=== PATIENT | male | born 1930 | race Caucasian/White ===

== ENCOUNTER 2018-07-27 14:30 | Emergency (ER) | payer MEDICARE ==
[2018-07-27] MEDS ORDERED: oxyCODONE/Acetamin 5/325 MG* TAB PO ONE ×2 (16:39→21:23)
--- NOTE | 2018-07-27 17:38 | ED ---
Upper Extremity Pain - HPI Summary HPI Summary: Receiving sign out from Denise YAÑEZ. 88 yo male presents to [facility] accompanied by his daughter with pain and bruising to right shoulder. Pt tells me that he is on coumadin and plavix for stents and afib. From time to time he will wake up with bruising from sleeping awkwardly or on his extremities. Yesterday he woke with some bruising to his right chest/axilla that was not painful and mild swelling to his right shoulder. This morning the bruising has spread and he has significant pain extending into the right shoulder accompanied by further edema; this prompted their visit to the ED today. He denies specific injury to the shoulder, but is unable to move it much due to pain. He denies numbness or tingling. - History of Current Complaint Chief Complaint: EDExtremityUpper Stated Complaint: "RT ARM PAIN PER DAUGHTER" Time Seen by Provider: 07/27/18 15:44 Hx Obtained From: Patient, Family/Digital Strategy Director Timing: Constant Severity Initially: Mild Severity Currently: Severe Pain Location: Shoulder - Allergies/Home Medications Allergies/Adverse Reactions: Allergies Allergy/AdvReac Type Severity Reaction Status Date / Time ezetimibe [From Zetia] Allergy Unknown Verified 07/27/18 14:42 Reaction Details meperidine [From Demerol] Allergy Unknown Verified 07/27/18 14:42 Reaction Details Home Medications: Home Medications Acetaminophen TAB* [Tylenol TAB*] 1,000 mg PO Q4H PRN 07/27/18 [History Confirmed 07/27/18] Clopidogrel TAB* [Plavix TAB*] 75 mg PO DAILY 07/27/18 [History Confirmed ] Digoxin TAB* [Lanoxin TAB*] 0.125 mg PO DAILY 07/27/18 [History Confirmed ] Furosemide TAB* [Lasix TAB*] 40 mg PO DAILY 07/27/18 [History Confirmed 07/27/18 ] Isosorbide Dinitrate TAB* [Isordil TAB*] 30 mg PO DAILY 07/27/18 [History Confirmed 07/27/18] Lisinopril TAB* [Prinivil TAB*] 5 mg PO DAILY 07/27/18 [History Confirmed ] Metoprolol Tartrate TAB* [Lopressor TAB*] 12.5 mg PO DAILY 07/27/18 [History Confirmed 07/27/18] Oxybutynin TAB* [Ditropan TAB*] 5 mg PO DAILY 07/27/18 [History Confirmed ] Rosuvastatin (NF) [Crestor (NF)] 5 mg PO DAILY WITH MEAL 07/27/18 [History Confirmed 07/27/18] Warfarin TAB(*) [Coumadin TAB(*)] 5 mg PO DAILY 07/27/18 [History Confirmed 03/16] amLODIPine TAB* [Norvasc 5 mg TAB*] 5 mg PO DAILY 07/27/18 [History Confirmed ] PMH/Surg Hx/FS Hx/Imm Hx Cardiovascular History: Reports: Hx Atrial Fibrillation, Hx Congestive Heart Failure, Hx Hypercholesterolemia, Hx Hypertension, Hx Myocardial Infarction Respiratory History: Reports: Hx Chronic Obstructive Pulmonary Disease (COPD) GI History: Denies: Hx Gastrointestinal Bleed History: Denies: Hx Acute Renal Failure, Hx Chronic Renal Failure, Hx Dialysis, Hx Kidney Stones Neurological History: Denies: Hx CVA Psychiatric History: Denies: Hx Anxiety, Hx Depression Infectious Disease History: No Infectious Disease History: Denies: Traveled Outside the [place] in Last 30 Days - Family History Known Family History: Positive: Cardiac Disease, Hypertension, Respiratory Disease - Social History Occupation: Retired Alcohol Use: None Substance Use Type: Reports: None Smoking Status (MU): Former Smoker Review of Systems Constitutional: Negative Eyes: Negative ENT: Negative Cardiovascular: Negative Respiratory: Negative Gastrointestinal: Negative Genitourinary: Negative Musculoskeletal: Other - Right shoulder pain and bruising Positive: Bruising - Right shoulder/chest Neurological: Negative Psychological: Normal All Other Systems Reviewed And Are Negative: Yes Physical Exam - Summary Physical Exam Summary: GENERAL: NAD. WDWN. No pain distress. SKIN: Right upper arm with ecchymosis on anterior aspect. Right lateral breast with ecchymosis. Right shoulder no ecchymosis or open wound - moderate edema here. CHEST: No accessory muscle use. Breathing comfortably and in no distress. CV: Pulses intact radial and ulnar. Cap refill <2seconds MSK: RIGHT SHOULDER: Moderate edema and mild TTP about shoulder. Decreased flexion due to pain. Strength 5/5 including computer operations technician strength. NEURO: Alert. Sensations intact hand and all fingers. PSYCH: Age appropriate behavior. Triage Information Reviewed: Yes Vital Signs On Initial Exam: Initial Vitals Temp Pulse Resp BP Pulse Ox 98.7 F 76 18 125/66 90 07/27/18 14:37 07/27/18 14:37 07/27/18 14:37 07/27/18 14:37 07/27/18 14:37 Vital Signs Reviewed: Yes Diagnostics - Vital Signs Vital Signs Temp Pulse Resp BP Pulse Ox 07/27/18 16:54 15 07/27/18 16:05 99.1 F 67 19 138/59 97 07/27/18 15:38 98.9 F 73 18 129/61 99 07/27/18 14:37 98.7 F 76 18 125/66 90 - Laboratory Result Diagrams: 07/27/18 18:00 07/27/18 18:00 Lab Statement: Any lab studies that have been ordered have been reviewed, and results considered in the medical decision making process. Re-Evaluation - Re-Evaluation First Eval Re-Evaluation Time: 21:23 Comment: Pt thinks pain medication is wearing off. Pain 7/10 at this time. Will give him another percocet now. Second Eval Re-Evaluation Time: 23:13 Comment: FINDINGS: Bones/joints: Lobulated right shoulder joint effusion extending anteriorly. Enlargement of the bursa overlying the humeral head laterally. Moderate right. shoulder joint space loss with periarticular osteophytes. Moderate hypertrophy. of the AC joint. Soft tissues: Normal. Vasculature: The vasculature demonstrates diffuse mild atherosclerotic. calcification. Lungs: Moderate centrilobular emphysematous disease. Compressive atelectasis. Pleural space: Moderate right pleural effusion. Thyroid: Low attenuating right thyroid lobe nodule measuring up to 2.2 cm with. nodular enhancing mural nodules. IMPRESSION: 1. Subacromial/subdeltoid bursitis. 2. Lobulated joint effusion with etiologies including rheumatoid arthritis,. gout, and ankylosing spondylitis. 3. Moderate emphysema and moderate right effusion. 4. Right thyroid lobe nodule. Followup with ultrasound recommended. Discussed results with pt and family. Course/Dx - Course Course Of Treatment: CT findings as above. No hemarthrosis noted. Pt pain is well controlled with po oxycodone in the ED without any mental disturbances, bradycardic or hypotensive episodes. He will be discharged to home and instructed to apply ice to his shoulder and f/u with his PCP on Sunday in [place] for a recheck. Will rx for Oxycodone to take for breakthrough pain if tylenol is not helping. Pt and family voiced understanding and are agreeable with the plan. - Diagnoses Provider Diagnoses: Bursitis of right shoulder Discharge - Sign-Out/Discharge Documenting (check all that apply): Patient Departure Patient Received Moderate/Deep Sedation with Procedure: No - Discharge Plan Condition: Stable Disposition: HOME Prescriptions: Oxycodone HCl/Acetaminophen [Percocet 5-325 mg Tablet] 1 each PO Q8H PRN #9 tablet MDD 3 PRN Reason: Pain Patient Education Materials: Shoulder Bursitis (ED), Swollen Shoulder Joint (ED ) Referrals: No Primary Care Phys,NOPCP [Primary Care Provider] - Additional Instructions: If you develop a fever, shortness of breath, chest pain, new or worsening symptoms - please call your PCP or go to the ED immediately. Please rest and apply ice to your shoulder to decrease pain and swelling. Please follow up with your primary doctor on Sunday for a recheck. I strongly recommend that you see an Orthopedic doctor for further evaluation when you return home. If you notice a fever or bruising into the shoulder or worsening symptoms - please be rechecked immediately - Billing Disposition and Condition Condition: STABLE Disposition: Home
[2018-07-27 18:06] LABS: ABS Basophils 0.1 10^3/ul (0-0.2); ABS Eosinophils 0.1 10^3/ul (0-0.6); ABS Lymphocytes 0.9 10^3/ul (1.0-4.8); ABS Monocytes 0.4 10^3/ul (0-0.8); ABS Neutrophils 3.5 10^3/ul (1.5-7.7); Eosinophil % 2.2 %; Hematocrit 33 % (42-52); Hemoglobin 10.9 g/dL (14.0-18.0); Lymphocyte % 18.5 %; Mean Corpuscular HGB Conc 33 g/dL (31-36); Mean Corpuscular Hemoglobin 29 pg (27-31); Mean Corpuscular Volume 89 fL (80-94); Mean Platelet Volume 7.4 fL (7.4-10.4); Nucleated Red Blood Cells % 0.1; Platelet Count 205 10^3/uL (150-450); Red Blood Count 3.74 10^6 /uL (4.18-5.48); Red Cell Distribution Width 15 % (10.5-15); White Blood Count 5.1 10^3/uL (3.5-10.8)
[2018-07-27] MEDS ORDERED: Ondansetron INJ* 2 MG/ML VIAL IV ONE (18:06)
[2018-07-27] MEDS ORDERED: Morphine 4 MG/ML VIAL (1 ml) 4 MG/ML VIAL IV ONE ×2 (18:06→23:29)
--- NOTE | 2018-07-27 18:12 | ED ---
Progress - Progress Note Progress Note: Pt presents w/ Rt shoulder pain after waking this morning - thinks he may have slept on it "funny". Swollen, painful at rest - worse w/ movement which is limited. Denies numbness, tingling,weakness into extremity. Has had bruising over bicep past 10 days w/o pain or injury and admits this happens on both arms from time to time - has always resolved that it was from coumadin and plavix. Yesterday however he has bruising over his Rt chest which he's never had before - again, non-painful and no reports of fall or injury to UE. Denies h/o bleeding issues from coumadin and does not report bleeding elsewhere (ie. epistaxis, hematuria, etc). Denies fever, chills, AYALA, dizziness, weakness, syncope, CP, SOB. Has tried 2 rounds of acetaminophen today w/o relief. Pain 8/ 10. PMH: HTN, a fib, NV w/ stent, hip replacement, COPD w/ h/o prednisone use - taking 10mg daily now to help w/ sx, on 3L O2 at home. Physical Exam General: Alert and oriented x3, appears to be mildly uncomfortable but reports 8 /10 pain EENT: mucosa moist, EOMI Heart: IRR Lungs: CTA, breathing easily AB: + BS, soft INTEG: warm, dry and intact but dark bruising over Rt upper arm and purpuric ecchymosis over Rt pec w/ mild edema compared to Lt - other areas with bruising observed KADY: limited ROM B/L shoulders (baseline) however Rt has pain w/ attempted movement and cannot move from side where as he can move Lt shoulder; Rt shoulder is boggy to touch and appears to be more anterior than Lt - anterior aspect TTP - scapula is NTTP NEURO: CN II-XII grossly intact; equal sensation and timber watchman strength B/L - some pain in shoulder w/ timber watchman on Rt Extremities: no edema, well perfused - radial pulse + 2, cap refill < 2 secs PSYCH: pleasant, calm, cooperative, appropriate affect Rt shoulder XR: Deg joint, "high riding" humeral head relative to glenoid, joint instability due to deg change in rotator cuff - no freddy fx/dislocation Course: Pulse ox was in high 80's low 90's on 2 L so was bumped up to 3L and high 90's. BP 150's s/p percocet PO and pain worsening over 45 mins despite percocet so added IV morphine with zofran. Suspect hemarthrosis from spontaneous bleeding, pathological injury, etc however labs and CT not completed prior to sign out. Pt signed out to Juan Diego Esqueda PA-C, pending renal function for CT scan w/ or w/o contrast. If sent home, may f/u with care provider(s) in [place] where he is from. Condition: Stable. NOTE: I initially evaluated pt and signed out to Juan Diego Esqueda PA-C. My note is listed as a "progress note" because I had not started a note yet when Juan Diego Esqueda PA-C started is note under "UE injury". Re-Evaluation - Re-Evaluation First Eval Re-Evaluation Time: 21:23 Comment: Pt thinks pain medication is wearing off. Pain 7/10 at this time. Will give him another percocet now. Second Eval Re-Evaluation Time: 23:13 Comment: FINDINGS: Bones/joints: Lobulated right shoulder joint effusion extending anteriorly. Enlargement of the bursa overlying the humeral head laterally. Moderate right. shoulder joint space loss with periarticular osteophytes. Moderate hypertrophy. of the AC joint. Soft tissues: Normal. Vasculature: The vasculature demonstrates diffuse mild atherosclerotic. calcification. Lungs: Moderate centrilobular emphysematous disease. Compressive atelectasis. Pleural space: Moderate right pleural effusion. Thyroid: Low attenuating right thyroid lobe nodule measuring up to 2.2 cm with. nodular enhancing mural nodules. IMPRESSION: 1. Subacromial/subdeltoid bursitis. 2. Lobulated joint effusion with etiologies including rheumatoid arthritis,. gout, and ankylosing spondylitis. 3. Moderate emphysema and moderate right effusion. 4. Right thyroid lobe nodule. Followup with ultrasound recommended. Discussed results with pt and family. Course/Dx - Diagnoses Provider Diagnoses: Bursitis of right shoulder Discharge - Sign-Out/Discharge Documenting (check all that apply): Patient Departure Patient Received Moderate/Deep Sedation with Procedure: No - Discharge Plan Condition: Stable Disposition: HOME Prescriptions: Oxycodone HCl/Acetaminophen [Percocet 5-325 mg Tablet] 1 each PO Q8H PRN #9 tablet MDD 3 PRN Reason: Pain Patient Education Materials: Shoulder Bursitis (ED), Swollen Shoulder Joint (ED ) Referrals: No Primary Care Phys,NOPCP [Primary Care Provider] - Additional Instructions: If you develop a fever, shortness of breath, chest pain, new or worsening symptoms - please call your PCP or go to the ED immediately. Please rest and apply ice to your shoulder to decrease pain and swelling. Please follow up with your primary doctor on Sunday for a recheck. I strongly recommend that you see an Orthopedic doctor for further evaluation when you return home. If you notice a fever or bruising into the shoulder or worsening symptoms - please be rechecked immediately - Billing Disposition and Condition Condition: STABLE Disposition: Home
[2018-07-27 18:15] LABS: Activated Partial Thrombo Time 49.4 seconds (26.0-38.0); INR 4.62 (0.82-1.09)
[2018-07-27 18:23] LABS: Albumin 3.9 g/dL (3.2-5.2); Albumin/Globulin Ratio 1.6 (1-3); BUN/Creatinine Ratio 28.7 (8-20); Calcium 10.2 mg/dL (8.6-10.3); EGFR African American 63.6 (>60); EGFR Non-African American 52.6 (>60); Globulin 2.5 g/dL (2-4); Potassium 4.2 mmol/L (3.5-5.0); Total Bilirubin 1.2 mg/dL (0.2-1.0); Total Protein 6.4 g/dL (6.4-8.9)
[2018-07-27] MEDS ORDERED: Iodixanol* (CONTRAST) 320 MG/ML 100 ML SDV IV ONE (18:57)
[2018-07-27] MEDS ORDERED: NS 0.9% 1000 ML** 1,000 ML IV ONE (22:49)
[2018-07-28] MEDS ORDERED: oxyCODONE/Acetamin 5/325 MG* TAB PO ONE (00:01)
[2018-07-28 00:24] VITALS: BP 152/83
== END 2018-07-28 00:22 | disposition home or self-care (01) ==
LOC: ED 14:30
DX: M75.51 Bursitis of right shoulder (principal); I11.0 Hypertensive heart disease with heart failure; I50.9 Heart failure, unspecified; E78.00 Pure hypercholesterolemia, unspecified; E04.1 Nontoxic single thyroid nodule; I25.2 Old myocardial infarction; I48.91 Unspecified atrial fibrillation; J44.9 Chronic obstructive pulmonary disease, unspecified; Z95.5 Presence of coronary angioplasty implant and graft; Z79.01 Long term (current) use of anticoagulants; Z88.8 Allergy status to other drugs, medicaments and biological substances; Z79.899 Other long term (current) drug therapy; Z87.891 Personal history of nicotine dependence
CPT/HCPCS: 36415; 80053; 85025; 85610; 85730; 96361; 96374; 96375; 99285; A9270-GY; J2270; J2405; Q9967